=== PATIENT | female | born 1940 | race Caucasian/White ===

== ENCOUNTER 2018-06-29 15:34 | Emergency (ER) | payer OTHER ==
[~2018-06-29] VITALS: Ht 157.5 cm; Wt 60.8 kg
[~2018-06-29 15:34] MED LIST: ALBU90OI INH; ALBU90OI61 INH; ALL DAY ALLERGY10 M1 PO; ARNUITY ELLIP200 MCG INH; ASCO500 PO; Aspir 8181 MG PO; BUDE32NIS; CALCAVITD PO; CARV6.25 PO; CILO100; CLOP75 PO; DULERA 200 MCG/13 GM INH; Daily Multiple1 EACH PO; ERGO400 PO; FISH1000 PO; Furosemide20 MG PO; GABA300 PO; HYDCHL50 PO; IBUP400 PO; IBUP600 PO; LISI20 PO; LISI5 PO; LORA10 PO; MAGNESIUM PO; MONT10T PO; Metrogel 1% 6060 GM TOP; Metronidazole T45 GM TOP; NASACORT10.8 ML; Norco 5-325 Ta1 EACH PO; POTA10T PO; PROP10 PO; QVAR7.3 G1 IH; SIMV10 PO; TOCO400 PO; TRAZ100 PO; VITAMIN B122500 MC1 PO; Voltaren100 GM TP
== END 2018-06-29 17:31 | disposition home or self-care (01) ==
LOC: ER 15:34
DX: S63.91XA Sprain of unspecified part of right wrist and hand, initial encounter (principal); S00.11XA Contusion of right eyelid and periocular area, initial encounter; J44.9 Chronic obstructive pulmonary disease, unspecified; Z87.891 Personal history of nicotine dependence; Z88.0 Allergy status to penicillin; W01.0XXA Fall on same level from slipping, tripping and stumbling without subsequent striking against object, initial encounter
CPT/HCPCS: 70450; 73130; 90471; 90714; 99284-25

== ENCOUNTER 2018-12-05 09:25 | Day surgery (SDC) | payer OTHER ==
[~2018-12-05] VITALS: Ht 157.5 cm; Wt 64.0 kg
--- NOTE | 2018-12-05 16:45 | NUR ---
Patient arrived via gurney supine. She was awake, alert and oriented and able to communicate her needs. She is on RA and sats upper 90%'s. She has jagdeep dressing to right groin with quarter size of dark red blood after HC staff holding pressure. She has been educated on laying still and trying not to tighten up abdomen. She is in SR 80-90 abd systolics 120-130's. Family at bedside.
--- NOTE | 2018-12-05 18:38 | NUR ---
Patient has been oozing from right groin and have held pressure several times and comntinues to ooz slowly and area soft and palpable. Called Dr Delong and notified of the oozing and he stated to just monitor. Systolic 150 and HR 90's and denies any current pain. She continues to lie supine and reminded to not lift head or bear down.
[2018-12-05 19:17] LABS: Source, Urine Catheter
[2018-12-05 19:23] LABS: Appearance, Urine Clear (Clear); Bilirubin, Urine Neg (Neg); Blood, Urine Neg (Neg); Color, Urine Yellow (P-Yellow); Glucose Qualitative, Urine Neg (Neg); Ketones, Urine 1+ (Neg); Leukocyte Esterase, Urine Neg (Neg); Nitrite, Urine Neg (Neg); Protein, Urine Neg (Neg); Specific Gravity, Urine 1.005 (1.003-1.022); Urobilinogen, Urine NORM (Normal)
--- NOTE | 2018-12-05 19:52 | NUR ---
REPORT FROM ROBERTO MARKS. PT A+O PLEASANT WITH NO COMPLAINTS. R GROIN SITE ASSESSED AND WAS WITH KARINA DRESSING IN PLACE APPRX 90% SATURATED BUT SITE WITHOUT PALPABLE SWELLING NOR BRUISING. PT STATED IS ONLY SLIGHTLY TENDER WHEN PRESSED. VSS. PT REMAINS IN SUPINE POSITION. DRESSING CHANGED USING ASEPTIC TECHNIQUE AND FRESH KARINA DRESSING AND TEGADERM. WILL CONTINUE TO ASSESS AND FOLLOW 4-HOUR POST PROCEDURE ORDERS. PT WITH CALL LIGHT IN HAND.
--- NOTE | 2018-12-05 22:48 | NUR ---
UPDATE: ONLY SCANT AMOUNT OF RED DRAINAGE TO KARINA DRESSING AFTER DRESSING CHANGE. WITH NO SWELLING OR BRUISING NOTED. AT 2100, PT BROUGHT TO A CHEEMA'S POSITION FOR NOC MEDICATION ADMIN AND EVENING ADL'S. RIGHT GROIN SITE ASSESSED FREQUENTLY AND WAS AND IS WITHOUT CHANGE. CURRENTLY PT LYING ON RIGHT SIDE SLEEPING. R GROIN SITE CONTINUES WITH ONLY THE SCANT AMOUNT OF RED DRAINAGE, NO SWELLING OR BRUISING NOTED. PT WITH NO COMPLAINTS OTHER THAN WANTING TO SLEEP. CALL LIGHT WITHIN REACH.
--- NOTE | 2018-12-05 23:29 | NUR ---
YHYPOTENSION: PT WITH TRENDING HYPOTENSION. R GROIN SITE WNL. PT WITH NO COMPLAINTS OF DIZZINESS OR LIGHT HEADEDNESS. BP 70'S/40'S, HR 90'S. DR. WATERMAN NOTIFIED AND UPDATED RE: PT MEDS GIVEN AND I&O FOR THIS DAY +200. NEW ORDERS TO ADMINISTER NS 500cc BOLUS THEN 100mL/hr THEREAFTER. CBC AND CHEM PANEL IN am.
[2018-12-06 03:15] LABS: BASOPHILS ABSOLUTE AUTO 0.02 K/mm3 (0.00-0.23); BASOPHILS PERCENT AUTO 0 % (0-2); EOSINOPHILS ABSOLUTE AUTO 0.02 K/mm3 (0.00-0.68); EOSINOPHILS PERCENT AUTO 0 % (0-6); Hematocrit 33.8 % (33.0-51.0); Hemoglobin 11.1 g/dL (11.5-16.0); IMMATURE GRAN ABSOLUTE AUTO 0.01 K/mm3 (0.00-0.10); IMMATURE GRAN PERCENT AUTO 0 % (0-1); LYMPHOCYTES ABSOLUTE AUTO 0.75 K/mm3 (0.84-5.20); LYMPHOCYTES PERCENT AUTO 10 % (21-46); MONOCYTES ABSOLUTE AUTO 0.65 K/mm3 (0.16-1.47); MONOCYTES PERCENT AUTO 8 % (4-13); Mean Corpuscular HGB 31.2 pg (26.0-34.0); Mean Corpuscular HGB Conc 32.8 g/dL (31.5-36.5); Mean Corpuscular Volume 95 fL (80-100); Mean Platelet Volume 9.7 fL (9.1-12.4); NEUTROPHILS ABSOLUTE AUTO 6.39 K/mm3 (1.96-9.15); NEUTROPHILS PERCENT AUTO 81 % (41-73); Platelet Count 165 K/mm3 (150-400); RDW Coefficient Variation 13.2 % (11.7-14.2); RDW Standard Deviation 46.3 fL (35.1-46.3); Red Blood Cell Count 3.56 M/mm3 (3.80-5.20); White Blood Cell Count 7.84 K/mm3 (4.00-11.30)
--- NOTE | 2018-12-06 03:21 | NUR ---
UPDATE: PT R GROIN SITE REMAINS WNL. PEDAL AND TIBIAL PULSES + VIA DOPPLER. BILAT LOWER EXTREM REMAIN WARM C/ CAP REFILL <3. NAILBEDS PINK. PT HYPTENSION RESOLVED WITH FLUID BOLUS AND INFUSION OF NS. VSS. PT REMAINS A+O WHEN AWAKE, PLEASANTLY CONVERSIVE. USING CALL LIGHT APPROPRIATELY. REQUESTING SLEEP WHEN RN LEAVES THE ROOM.
[2018-12-06 03:33] LABS: Anion Gap 5 mmol/L (6-16); Blood Urea Nitrogen 20 mg/dL (8-24); Bun/Creatinine Ratio 23.7 (12.0-20.0); CO2, Blood 27 mmol/L (21-32); Calcium, Blood 7.9 mg/dL (8.5-10.1); Chloride, Blood 110 mmol/L (98-108); Creatinine, Blood 0.84 mg/dL (0.40-1.00); Glomerular Filtration Rate >60 (60-); Glucose, Blood 112 mg/dL (70-99); Sodium, Blood 142 mmol/L (136-145)
--- NOTE | 2018-12-06 07:26 | NUR ---
SHIFT SUMMARY: PT R GROIN SITE REMAINED WNL T/O NOC. HYPOTENSION RESOLVED WITH FLUID BOLUS AND INFUSION. PT A+O THIS AM. VSS. REPORT GIVEN TO BERENICE MARKS AND WILLY MARKS.
--- NOTE | 2018-12-06 07:30 | NUR ---
ASSUMPTION OF CARE PT AWAKE, ALERT AND ORIENTATED. R GROIN SITE SOFT, NON-TENDER. PEDAL PULSES POSITIVE PER DOPPLER, BLE WARM, GOOD CAP REFILL. PT SITTING UP IN BED W/O COMPLAINTS.
[2018-12-06] MEDS ORDERED: Loratadine10 MG PO (13:01)
--- NOTE | 2018-12-06 13:56 | NUR ---
VERBAL AND WRITTEN INSTRUCTIONS GIVEN WITH CLEAR UNDERSTANDING. FOLLOW UP APPOINTMENT SCHEDULED WITH DR MCKEON, PT STS HAS SCHEDULED F/U APPT WITH PCP. PT STS RX MEDICATION NOT NEEDED, HAS SUFFICIENT SUPPLY AT HOME. GROIN SITE SOFT AND NON-TENDER. PT DC'D IN STABLE CONDITION IN CARE OF DAUGHTER.
== END 2018-12-06 13:56 | disposition home or self-care (01) ==
LOC: MHTC 09:25 → ICUE 09:25 → MHTC 09:26 → ICUE 14:56 → MHTC 12-06 13:56
PROVIDERS: Internal Medicine Interventional Cardiology; Radiology Diagnostic Radiology
DX: I70.203 Unspecified atherosclerosis of native arteries of extremities, bilateral legs (principal); I99.8 Other disorder of circulatory system
CPT/HCPCS: 36415; 37226; 37228; 37232; 51702; 75710; 80048; 81003; 85025; 85347; 94760; 99152; 99153; C1725; C1769; C1874; C1887; C1894; C2623; J0360; J1644; J2250; J3010; J7030; Q9967

== ENCOUNTER → 2019-01-30 | Outpatient (CLI) | payer OTHER ==
[~2019-01-30] MED LIST changes: +Loratadine10 MG PO
== END | disposition home or self-care (01) ==
LOC: PLD 14:49 → LAB SHORT 14:49
DX: C44.41 Basal cell carcinoma of skin of scalp and neck (principal)
CPT/HCPCS: 88305

== ENCOUNTER 2019-11-27 07:40 | Day surgery (SDC) | payer OTHER ==
[~2019-11-27] VITALS: Ht 157.5 cm; Wt 63.0 kg
[~2019-11-27 07:40] MED LIST changes: +FURO20; -Furosemide20 MG PO; -Loratadine10 MG PO; -POTA10T PO; +POTCHL20ER PO
[2019-11-27] MEDS ORDERED: PROP10 PO (08:11)
[2019-11-27] MEDS ORDERED: ADVAIR HFA 230-28 GM INH (08:12)
--- NOTE | 2019-11-27 15:43 | NUR ---
PT'S R PT OOZING, MANUAL PRESSURE APPLIED BY DAVID MARKS WITH KARINA, DRESSING ON NOW AND WATCHING, L ANGIOSEAL SITE SLIGHT OOZE/HEMATOME, NEW KARINA PLACE AND WATCHING. PT ON BED RIVERA NOW, HAVING DIFFICULTY LAYING ON HER BACK POST PROCEDURE.
--- NOTE | 2019-11-27 16:09 | NUR ---
DR MCKEON IN W PT NOW, EPI TO L PEDAL HEMATOMA R/T CONINUED OOZING AFTER MAN PRESSURE, EPI TO L ANGIOSEAL SITE R/T CONTINUED OOZING AFTER MAN PRESSURE.
[2019-11-27] MEDS ORDERED: XARELTO20 MG PO (17:04)
--- NOTE | 2019-11-27 17:09 | NUR ---
1630 DR. MCKEON AT THE BEDSIDE FOP EVALUATION OF RIGHT LOWER EXTREMITY. WARM BLANKETS TO THE LEG AND CONTINUE TO MONITOR BY RN.
--- NOTE | 2019-11-27 17:11 | NUR ---
1700 ASSUMED CARE OF PATIENT. SBAR RECEIVED FROM SELINA HERNANDEZ
--- NOTE | 2019-11-27 17:12 | NUR ---
PATIENT SITTING UP IN THE BED. LFA SITE WITH KARINA PAD AND TEGADERM, CDI RIGHT PEDAL WITH MULTIPLE STICK SITES. KARINA PAD AND TEGADERM TO MEGHA RIGHT PT AND DP. FOOT WARM TO TOUCH AND CIRCUMFERENCE SLIGHTLY LARGER THAN THE LEFT LEG. PEDAL EDEMA NOTED. NO PAIN NOTED FROM THE PATIENT. FAMILY MEMBER AT THE BEDSIDE. CALL LIGHT IN REACH.
--- NOTE | 2019-11-27 17:45 | NUR ---
8440 DR. MCKEON AT THE BEDSIDE AND EVALUATED PATIENT AND DECIDED TO KEEP HER FOR OBSERVATION. ROOM OBTAINED AND PREPARED FOR TRANSFER. FAMILY AT THE BEDSIDE AND ALL QUESTIONS ANSWERED.
--- NOTE | 2019-11-27 18:16 | NUR ---
1805N PATIENT TRANSFER VIW WHEEL[facility]IR FROM [facility] TO [id number]. ALL BELONGINGS BROUGHT WITH THE PATIENT.
[2019-11-27] MEDS ORDERED: Loratadine10 MG PO (18:35)
--- NOTE | 2019-11-27 18:48 | NUR ---
PT ARRIVED IN THE UNIT VIA WHEELCHAIR FROM [facility] PT IS HERE FOR EXTENDED RECOVERY POST REVASCULARIZATION, TO WATCH OUT FOR POSS COMPARTMENT SYNDROME. PT IS ALERT AND ORIENTED AT BASELINE. VITALS NSR 80'S, BP SYSTOLIC 160'S, SATS ABOVE 95% ON RA, AFEBRILE. PT HAS LEFT GROIN SITE DRESSING CDI NO HEMATOME NOTED AROUND THE SITE ALSO HAS TWO MORE ACCESS SITE ON RIGHT FOOT, ONE ON TOP AND ONE BEHIND THE ANKLE, THE ONE IN THE ANKLE WAS SATURATED WITH BLOOD, KARINA DRESSING WAS CHANGED. RIGHT LEG IS LESS SWOLLEN PER BATTER DEPOSITOR NURSE, STILL SLIGHTLY PAINFUL AND WARM TO TOUCH. PULSE FAINT ON LEFT FOOT, UNABLE TO ASSESS PULSE ON RIGHT FOOT DUE TO DRESSING/ACCESS SITE. PT CURRENTLY EATING HER DINNER, NO OTHER ISSUES AT THIS TIME WILL REPORT TO ONCOMING SHIFT
--- NOTE | 2019-11-28 05:34 | NUR ---
PT RESTED COMFORTABLY THROUGH NIGHT AO ROOM AIR NO BM VOIDS TO TOILET SBA WITH WALKER NO C/O PAIN VSS SWELLING IN LEG IMPROVING PER LOCOMOTIVE SUPERVISOR, AND PT FEELING CALL LIGHT WITHIN REACH, BED IN LOWEST POSITION. WILL CONTINUE TO MONITOR.
--- NOTE | 2019-11-28 07:45 | NUR ---
ASSUME CARE: PT UP IN THE CHAIR UPON RECEIVING REPORT, NO COMPLAINTS. VITALS STABLE HRR SINUS 80'S, BP SYSTOLIC 140'S, SATS ABOVE 93% ON RA, AFEBRILE. RIGHT FOOT SITE DRESSING REMAINED CDI WTIH SOME BRUISING AROUND THE AREA, NO SWELLING NOTED. LEFT GROIN SITE CDI WELL, RLE IS LESS PAINFUL AND SWOLLEN COMPARED TO LAST NIGHT. DENIES PAIN AT THIS TIME. PLAN TO DISCHARGE PT TODAY PER DR MCKEON. PT TO START ON XARELTO TODAY. WILL MONITOR PT UNTIL DISCHARGE.
--- NOTE | 2019-11-28 09:17 | NUR ---
PT DISCHARGED TO HOME TODAY WITH DISCHARGE ORDERS. PT TO CONTINUE TAKING HOME MEDS AND TO START XARELTO 2.5MG BID. PT REFUSED TO TAKE MORNING MEDS PRIOR TO LEAVING PT STATED SHE HAS HER MEDS SET UP AT HOME AND WILL OCCUPATIONAL THERAPY TECHNICIAN XARELTO PRESCRIPTION BEFORE HEADING HOME SO SHE CAN TAKE IT WITH MORNING MEDS. NO OTHER ISSUES PRIOR TO DISCHARGE. ALL BELONGINGS SENT WITH PT, DAUGHTER CAME IN TO OCCUPATIONAL THERAPY TECHNICIAN PT, PT ACCOMPANIED IN THE WHHELCHAIR BY PCT.
== END 2019-11-28 09:17 | disposition home or self-care (01) ==
LOC: MHTC 07:40 → PCU 18:07 → MHTC 11-28 09:17
DX: I70.213 Atherosclerosis of native arteries of extremities with intermittent claudication, bilateral legs (principal); I12.9 Hypertensive chronic kidney disease with stage 1 through stage 4 chronic kidney disease, or unspecified chronic kidney disease; N18.9 Chronic kidney disease, unspecified; J44.9 Chronic obstructive pulmonary disease, unspecified; G47.33 Obstructive sleep apnea (adult) (pediatric); I73.00 Raynaud's syndrome without gangrene; Z87.891 Personal history of nicotine dependence; Z88.0 Allergy status to penicillin; Z79.02 Long term (current) use of antithrombotics/antiplatelets; Z79.899 Other long term (current) drug therapy
CPT/HCPCS: 37228; 75716; 75774; 76937; 85347; 94640; 94760; 99152; 99153; C1714; C1725; C1757; C1760; C1769; C1874; C1887; C1894; C2623; C9767; J1644; J2250; J3010; J7030; Q9967

== ENCOUNTER 2019-12-08 18:23 | Emergency (ER) | payer OTHER ==
[~2019-12-08] VITALS: Ht 157.5 cm; Wt 59.0 kg
[~2019-12-08 18:23] MED LIST changes: +ADVAIR HFA 230-28 GM INH; +Loratadine10 MG PO; +XARELTO20 MG PO
== END 2019-12-08 21:29 | disposition home or self-care (01) ==
LOC: ER 18:23
DX: G89.18 Other acute postprocedural pain (principal); M79.604 Pain in right leg; J44.9 Chronic obstructive pulmonary disease, unspecified; Z98.890 Other specified postprocedural states; Z79.01 Long term (current) use of anticoagulants; Z79.891 Long term (current) use of opiate analgesic; Z88.0 Allergy status to penicillin; Z79.899 Other long term (current) drug therapy; Z79.82 Long term (current) use of aspirin; Z87.891 Personal history of nicotine dependence
CPT/HCPCS: 36415; 99283

== ENCOUNTER → 2020-02-13 | Outpatient (CLI) | payer OTHER ==
[~2020-02-13] MED LIST changes: +LASIX20 M2 PO; +NASACORT10.8 ML NS
== END ==
LOC: LAB SHORT 11:29 → PLD 11:29
DX: D48.5 Neoplasm of uncertain behavior of skin (principal)
CPT/HCPCS: 88305

== ENCOUNTER 2020-07-10 06:00 | Day surgery (SDC) | payer OTHER ==
[~2020-07-10] VITALS: Ht 157.5 cm; Wt 62.0 kg
--- NOTE | 2020-07-10 12:00 | NUR ---
PT UP TO BATHROOM /C SBA. TOLERATED WELL. -BLEEDING OR SWELLING L GROIN AREA.
--- NOTE | 2020-07-10 12:27 | NUR ---
PT AND DAUGHTER VERBALIZED UNDERSTANDING OF WRITTEN AND VERBAL D/C INST. IV REMOVED. -BLEEDING OR SWELLING L GROIN AREA. PT TAKEN OUT OF THE [facility] VIA W/C.
--- NOTE | 2020-07-10 12:29 | NUR ---
ALBUTEROL NEB GIVEN. LS DIMINISHED T/O.
== END 2020-07-10 12:30 | disposition home or self-care (01) ==
LOC: MHTC 06:00
DX: I70.223 Atherosclerosis of native arteries of extremities with rest pain, bilateral legs (principal); T82.858A Stenosis of other vascular prosthetic devices, implants and grafts, initial encounter; I70.0 Atherosclerosis of aorta; I12.9 Hypertensive chronic kidney disease with stage 1 through stage 4 chronic kidney disease, or unspecified chronic kidney disease; N18.9 Chronic kidney disease, unspecified; J44.9 Chronic obstructive pulmonary disease, unspecified; Y71.2 Prosthetic and other implants, materials and accessory cardiovascular devices associated with adverse incidents; Z87.891 Personal history of nicotine dependence; Z96.641 Presence of right artificial hip joint; Z88.0 Allergy status to penicillin; Z79.82 Long term (current) use of aspirin; Z79.02 Long term (current) use of antithrombotics/antiplatelets; Z79.01 Long term (current) use of anticoagulants
CPT/HCPCS: 37221; 37225; 37228; 37246; 75625; 75716; 75774; 76937; 85347; 99152; 99153; C1714; C1725; C1760; C1769; C1876; C1884; C1887; C1894; C2623; J1644; J2250; J3010; J7030; J7040; J7050; Q9967